=== PATIENT | female | born 1990 | race African-American/Black ===

== ENCOUNTER 2017-10-19 08:51 | Day surgery (SDC) | payer OTHER ==
[2017-10-18 11:30] VITALS: BMI 30.8
[2017-10-19] MEDS ORDERED: ROCURONIUM BROMIDE 50 MG/5 ML VIAL ONE ×2 (10:17)
[2017-10-19] MEDS ORDERED: MIDAZOLAM HCL 2 MG/2 ML SINGLE DOSE VIAL ONE (10:17)
[2017-10-19] MEDS ORDERED: fentaNYL CITRATE 250 MCG/5 ML VIAL ONE (10:17)
[2017-10-19] MEDS ORDERED: NEOSTIGMINE METHYLSULFATE 0.5 MG/ML - 10 ML MDV ONE ×2 (10:17→15:39)
[2017-10-19] MEDS ORDERED: BUPIVACAINE HCL/PF 0.5% (5MG/ML) 10 ML VIAL ONE (10:49)
--- NOTE | 2017-10-19 10:51 | HP ---
History & Physical Update - History History: No Change - Physical Physical: No Change - Assessment Assessment: No Change - Plan Plan: No Change (H & P on 10/12/17)
[2017-10-19] MEDS ORDERED: PROPOFOL 20 ML ONE (11:15)
[2017-10-19] MEDS ORDERED: ceFAZolin SODIUM 1 GM VIAL IVPB ONE (11:18)
[2017-10-19] MEDS ORDERED: BUPIVACAINE HCL/PF 0.5% (5MG/ML) 10 ML VIAL IJ ONE (11:28)
[2017-10-19] MEDS ORDERED: DESFLURANE GAS 240 ML BOTTLE IH ONE (11:53)
[2017-10-19] MEDS ORDERED: GLYCOPYRROLATE 0.2 MG/1 ML VIAL ONE ×2 (12:34→15:40)
--- NOTE | 2017-10-19 13:03 | OP ---
Operative Note - Note: Operative Date: 10/19/17 Pre-Operative Diagnosis: cholelithiasis with biliary colic Operation: laproscopic cholecystectomy Post-Operative Diagnosis: Same as Pre-op Surgeon: Manuel Cho Paint Laboratory Technician: Reginald Barcenas Anesthesia: General Specimens Removed: Gallbladder Estimated Blood Loss (mls): 10 Operative Report Dictated: Yes
--- NOTE | 2017-10-19 13:05 | SURG ---
Surgery Ordnance Officer Note Ordnance Officer: Reginald Barcenas PA-C Date of Service: 10/19/17 Diagnosis: Cholelithiasis with biliary colic Procedure: Laproscopic cholecystectomy I was present for the entirety of the operative procedure. For further detail, please refer to operative report.
[2017-10-19] MEDS ORDERED: ONDANSETRON 4 MG/2 ML VIAL IVPUSH PRN (14:27)
[2017-10-19] MEDS ORDERED: oxyCODONE HCL 5 MG TABLET PO PRN (14:27)
[2017-10-19] MEDS ORDERED: LACTATED RINGERS SOLUTION 1,000 ML IV SCH (14:30)
[2017-10-19 15:49] VITALS: TEMP 98
[2017-10-19] MEDS ORDERED: oxyCODONE HCL 5 MG TABLET ONE (16:42)
[2017-10-19] MEDS ORDERED: oxyCODONE HCL 5 MG TABLET PO ONE (16:47)
[2017-10-19 19:20] VITALS: BP 130/75; PULSE 70
--- NOTE | 2017-10-19 20:23 | OP ---
DATE OF OPERATION: 10/19/2017 PROCEDURE: Laparoscopic cholecystectomy. PREOPERATIVE DIAGNOSIS: Chronic cholecystitis with cholelithiasis. POSTOPERATIVE DIAGNOSIS: Chronic cholecystitis with cholelithiasis. SURGEON: Manuel Cho MD AIRCRAFT MECHANIC: Reginald. ANESTHESIA: General endotracheal. FINDINGS AND PROCEDURE: This is a 27-year-old female who presented with intermittent right upper quadrant pain radiating to the back; for which, an ultrasound in the emergency department showed gallbladder with multiple large stones and a normal- size common duct. On physical exam, patient has mild right upper quadrant tenderness with no rebound tenderness. So, patient was advised elective cholecystectomy. Consent was obtained after discussing the risks, benefits, and alternatives to the procedure. Patient was brought to the operating room and placed in supine position. General endotracheal anesthesia was then administered. The abdomen was prepped and draped in usual sterile fashion. Using initially the Optiview technique, an attempt to enter the peritoneal cavity was done. However, it proved unsuccessful. Veress needle technique was then used and pneumoperitoneum was established. The peritoneal cavity was then again entered using the Optiview technique via a 5-mm umbilical incision using a 5-mm 30-degree scope inserted in a 5-mm optical port. The peritoneal cavity was carefully inspected. It was noted to be free of inadvertent injury. Patient was then placed in reverse Trendelenburg , [id number] position. An 11-mm port was inserted in the subxiphoid area, and then, two 5-mm ports were inserted at the right subcostal region at the anterior axillary line and the midclavicular lines. The gallbladder fundus was grasped and retracted anterosuperiorly, and the infundibulum was grasped and retracted inferolaterally. Normal location of the cystic artery was noted, which was anterior to the cystic duct. The visceral peritoneum covering the triangle of Calot was scored using the hook dissector connected to monopolar cautery. Cystic artery was isolated first and was clipped at 3 points, followed by transection using the laparoscopic peggy, leaving 2 clips at the cystic artery stump. Further dissection using the hook dissector and [place] dissector was done until the cystic duct was visualized and isolated. The cystic duct was then clipped at 3 points, followed by transection, leaving 2 clips at the cystic duct stump. The gallbladder was extracted from the liver bed in antegrade fashion using the hook dissector connected to monopolar cautery. After this was completed, the gallbladder was placed in the Endobag and extracted via the subxiphoid incision which was slightly lengthened to accommodate these large stones. The gallbladder bed was again carefully inspected and noted to be free of active bleeding, and clips were noted to be intact. The pneumoperitoneum was then evacuated, and the ports were removed. The wounds were closed with continuous Vicryl 0 suture for the fascia of the subxiphoid incision and subcuticular Biosyn 4-0 suture for the skin. The wound closure was reinforced with Dermabond. Patient was successfully extubated and transferred to the postanesthesia care unit in satisfactory condition. Estimated blood loss was about 5 mL. Wound class: Clean/contaminated. The patient received 1 g of Ancef prior to the start of the procedure. Coleen [id number] MTDD
--- NOTE | 2017-10-22 18:38 | PATH ---
Surgical Pathology Report Patient Name: BRAXTON AZAR [facility]. Rec. #: [id number] /Age/Gender: 1990 (Age: 27) / F Account: [id number] Location: [facility] SURGICAL Taken: 10/19/2017 Received: 10/19/2017 Reported: 10/22/2017 Physicians: Manuel Cho M.D. Specimen(s) Received GALLBLADDER Clinical History Chronic cholecystitis, cholelithiasis Final Diagnosis GALLBLADDER, LAPAROSCOPIC CHOLECYSTECTOMY: CHRONIC CHOLECYSTITIS AND CHOLELITHIASIS. Electronically Signed Angela Ying M.D. Gross Description Received in formalin labeled "gallbladder," is a 7.9 x 2.5 x 2.3 cm gallbladder with a 0.2 cm in length portion of cystic duct attached. The outer surface is da silva-pink with a focal defect and varies from smooth to shaggy. The lumen contains da silva-yellow, sludgelike bile as well as multiple irregular to fragmented choleliths ranging from 0.1-1.3 cm in greatest dimension. The mucosa is da silva and focally eroded. The wall of the gallbladder ranges from 0.1-0.3 cm in thickness. Developmental Mathematics Instructor sections are submitted in one cassette. 10/19/2017
== END 2017-10-19 17:30 | disposition home or self-care (01) ==
LOC: JASU-SURG 08:51
PROVIDERS: ATTEND Surgery
PROC: 0FT44ZZ Resection of Gallbladder, Percutaneous Endoscopic Approach (ICD-10-PCS; principal; 2017-10-19 10:30)
DX: K80.10 Calculus of gallbladder with chronic cholecystitis without obstruction (principal)
CPT/HCPCS: 84703; 88304-TC; 94760